=== PATIENT | female | born 1995 | race Two or more races ===

== ENCOUNTER 2021-04-28 18:03 | Emergency (ER) | payer OTHER ==
[2021-04-28 18:10] VITALS: BP 135/79
[2021-04-28] MEDS ORDERED: cephALEXin 250 MG CAPSULE PO STA (18:30)
[2021-04-28] MEDS ORDERED: SULFAMETH/TRIMETH DS 800/160 MG TABLET PO STA (18:30)
--- NOTE | 2021-04-28 18:34 | ED Physician Documentation ---
History of Present Illness - Stated complaint Stated Complaint: RIGHT TOE PX - Chief complaint Chief Complaint: Ext Problem - History obtained from History obtained from: Patient - History of Present Illness Timing: Other (2 months) - Additonal information Additional information: 25-year-old female presents to the emergency department with pain/swelling to the R great toe. Patient States that she had an ingrown toenail which she did attempt to remove about 2 months ago. Has steadily worsened since that time. There is now drainage and tissue overgrowth. Denies any possibility of . Nothing makes it better or worse. Review of Systems Constitutional: denies: Fever, Chills GI: denies: Vomiting, Diarrhea : denies: Now [place] [facility] PAST MEDICAL HISTORY - Past Medical History Past Medical History: No - Past Surgical History Past Surgical History: No - Present Medications Home Medications: Ambulatory Orders Medication Instructions Recorded Confirmed HYDROcod/ACETAM 5/325 [[place] 5/325] 1 - 2 ea PO Q6H PRN #14 tablet 04/28/21 Sulfamethox/Trimeth 800/160 1 each PO BID #14 tablet 04/28/21 [Bactrim Ds 800/160] cephALEXin [Keflex] 500 mg PO Q6H #28 cap 04/28/21 - Allergies Allergies/Adverse Reactions: Allergies Allergy/AdvReac Type Severity Reaction Status Date / Time No Known Drug Allergies Allergy Verified 04/28/21 18:10 - Living Situation Living Situation: reports: With family Living Arrangement: reports: At home - Social History Does the pt have substance abuse?: No PD ED PE NORMAL - Vitals Vital signs reviewed: Yes - General General: Alert and oriented X 3, No acute distress - HEENT HEENT: Moist mucous membranes - Neck Neck: Supple, no meningeal sign - Derm Derm: Warm and dry - Extremities Extremities: Other (right great toe - There is granulation tissue overgrowing the medial aspect of the nail. There is purulent drainage. Mild swelling and erythema to the tip of the toe. The toe itself is soft. Neurovascular intact.) - Neuro Neuro: Alert and oriented X 3 - Psych Psych: Normal mood, Normal affect Results - Vitals Vitals: Vital Signs - 24 hr 04/28/21 18:08 Temperature 37.1 C Heart Rate 76 Respiratory 14 Rate Blood Pressure 135/79 H O2 Saturation 97 Oxygen O2 Source Room air PD MEDICAL DECISION MAKING - ED course Complexity details: considered differential, d/w patient ED course: Patient with a ingrown right toenail with a significant amount of granulation tissue overlying the medial aspect of the toenail. We did discuss removal here, but patient prefers to have this done by podiatry. We will place on antibiotics and refer her to podiatry for next week. Patient counseled regarding signs and symptoms for which I believe and urgent re-evaluation would be necessary. Patient with good understanding of and agreement to plan and is comfortable going home at this time This document was made in part using voice recognition software. While efforts are made to proofread this document, sound alike and grammatical errors may occur. Departure - Departure Disposition: 01 Home, Self Care Clinical Impression: Toe infection, Ingrown right big toenail Condition: Good Instructions: ED Toenail Ingrown Infec Abx Onl Follow-Up: Charlie Horvath DPM [Physician No Access] - Within 1 week Prescriptions: Sulfamethox/Trimeth 800/160 [Bactrim Ds 800/160] 1 each PO BID #14 tablet cephALEXin [Keflex] 500 mg PO Q6H #28 cap HYDROcod/ACETAM 5/325 [[place] 5/325] 1 - 2 ea PO Q6H PRN #14 tablet PRN Reason: Pain Comments: Follow-up with podiatry for further care. Return if you worsen. Continue to soak and change the dressing frequently on the toe. Take all antibiotics until gone. Your prescriptions were sent to [facility] in [place] I am prescribing a short course of narcotic pain medication for you. These are potentially dangerous and addictive medications that should be used carefully. These medications may constipate you. Take an qwoc-xoj-[id number] stool softener (docusate) twice daily with plenty of water while taking these medications. If you go 24 hours without a bowel movement, take [id number] miralax, per package instructions. Do not drink or drive while taking these medications. If you received narcotic or sedating medications while in the emergency department, do not drive for 24 hours. Store this medication in a safe, secure place and out of reach of children. It is a violation of federal law to give or sell this medication to another person or to use in a manner other than prescribed. The ED will not refill narcotic prescriptions, including prescriptions lost or stolen. To dispose of unwanted medications: 1. [facility] at [address] in [place] has a medication drop box. They accept prescription medications (in pill form) Saturday through Saturday 9:00 a.m. to 5:00 p.m. 2. The [facility] accepts prescription medications (in pill form only) for disposal year round. Call for more information. 3. Contact the [facility] for the next [facility] sponsored prescription drug collection event. , [phone], or [phone]; Discharge Date/Time: 04/28/21 18:44
== END 2021-04-28 18:44 | disposition home or self-care (01) ==
LOC: ED 18:03
DX: L60.0 Ingrowing nail (principal); L03.031 Cellulitis of right toe
CPT/HCPCS: 99282; 99283; A9270

== ENCOUNTER 2021-06-17 22:53 | Emergency (ER) | payer OTHER ==
[2021-06-17 23:00] VITALS: BP 119/68
--- NOTE | 2021-06-18 03:59 | ED Physician Documentation ---
History of Present Illness - Stated complaint Stated Complaint: TOE REDNESS/PX - Chief complaint Chief Complaint: Wound - History obtained from History obtained from: Patient - History of Present Illness Timing: Other (started February 2021) Pain level now: 2 - Additonal information Additional information: right toe erythema, swelling for a few months, gradual onset as ingrown toenail but over this timeframe, nailfold has developed into a granuloma that has enveloped the affected area of toenail. She was T+R from this ED last month for same, prescribed bactrim and keflex which she says greatly reduced the redness, pain, and swelling, but these signs/symptoms have gradually worsened over the past week. She has been unable to obtain follow-up. She says she contacted a podiatrists office but was told she would need a referral, and hasnt yet gotten in to see her PMD. Review of Systems Constitutional: denies: Fever Musculoskeletal: reports: Extremity pain, Extremity swelling, Pain with weight bearing PD PAST MEDICAL HISTORY - Past Medical History Past Medical History: No - Past Surgical History Past Surgical History: No - Present Medications Home Medications: Ambulatory Orders Medication Instructions Recorded Confirmed Sulfamethox/Trimeth 800/160 1 each PO BID #14 tablet 06/18/21 [Bactrim Ds 800/160] cephALEXin [Keflex] 500 mg PO Q6H #28 cap 06/18/21 - Allergies Allergies/Adverse Reactions: Allergies Allergy/AdvReac Type Severity Reaction Status Date / Time No Known Drug Allergies Allergy Verified 06/17/21 23:00 - Social History Does the pt smoke?: No Smoking Status: Never smoker Does the pt have substance abuse?: No PD ED PE NORMAL - Vitals Vital signs reviewed: Yes - General General: Alert and oriented X 3, No acute distress, Well developed/nourished PD ED PE EXPANDED - Extremities Extremities: Other (area diagrammed as 1: erythema, TTP. there is a large granulomatous overgrowth of the distal lateral nail fold overlapping / enveloping the toenail) Feet visual: 1 - swelling, tenderness Results - Vitals Vitals: Oxygen O2 Source Room air PD MEDICAL DECISION MAKING - ED course Complexity details: reviewed old records, considered differential, d/w patient ED course: pus is expressed from the distal-most aspect of the lateral nail fold of the right great toe when mild pressure is applied to the area of maximum inflammation . Given her reported response to previous round of antibiotics, will prescribe a second course of same. She will need excision of the granuloma; this is not a routine procedure for emergency medicine and thus best performed by a practitioner more familiar/comfortable with this procedure. She is instructed to pursue follow up with podiatry and to obtain referral, if necessary, through her PMD. Departure - Departure Disposition: Home, Self Care Clinical Impression: Ingrown right big toenail, Paronychia Condition: Good Instructions: ED Toenail Ingrown Infec Abx Onl Prescriptions: Sulfamethox/Trimeth 800/160 [Bactrim Ds 800/160] 1 each PO BID #14 tablet cephALEXin [Keflex] 500 mg PO Q6H #28 cap Comments: Follow up with podiatry. You will need to have the growth (granuloma) on the toe removed, or else the infection will keep returning. Prescriptions for antibiotics have been electronically submitted to [facility] pharmacy in [place] Discharge Date/Time: 06/18/21 04:59
[2021-06-18] MEDS ORDERED: SULFAMETH/TRIMETH DS 800/160 MG TABLET PO STA (04:37)
[2021-06-18] MEDS ORDERED: cephALEXin 250 MG CAPSULE PO STA (04:37)
== END 2021-06-18 04:59 | disposition home or self-care (01) ==
LOC: ED 22:53
DX: L60.0 Ingrowing nail (principal); L03.031 Cellulitis of right toe
CPT/HCPCS: 99282